=== PATIENT | female | born 1945 | race Caucasian/White ===

== ENCOUNTER → 2021-01-03 | Outpatient (CLI) | payer MEDICARE ==
[2015-03-19 14:24] VITALS: BP 116/49
[~2021-01-03] MED LIST: ALPR0.5T6 PO; BEE550CA PO; CALC-98 PO; FERR325C PO; GLUC100018 PO; HYDR-3135 PO; LISI10TA16 PO; LISI20TA18 PO; MAGN400T30 PO; PANT40TA77 PO; PARS1TAB PO; SUCR1TAB PO; SULF1TAB24 PO; WARF3TAB50 PO
--- NOTE | 2021-01-03 17:47 | CARD ---
MR#: [id number] Date of Study: 01/03/2021 Ordering Physician: NELLI RITCHIE, Referring Physician: NELLI RITCHIE Tech: Mesfin Leblanc [facility] APPROVED REPORT EXAM: Two-dimensional and M-mode echocardiogram with Doppler and color Doppler. INDICATION Hypertension/HCVD Echo Enhancing Agent Agent/Amount Used: Lumason mL RISK FACTORS Obesity 2D DIMENSIONS IVSd1.1 (0.7-1.1cm)Aortic Root(2D)2.7 (2.0-3.7cm) LVDd3.7 (3.9-5.9cm)LVOT Diameter1.8 (1.8-2.4cm) PWd1.2 (0.7-1.1cm)LVDs2.0 (2.5-4.0cm) FS (%) 47.5 %SV47.6 ml Aortic Valve AoV Peak Cain.161.3cm/sAoV VTI32.7cm AO Peak GR.10.4mmHgLVOT Peak Cain.114.2cm/s LVOT VTI 21.69cmAO Mean GR.6mmHg VANNESSA (VMAX)1.17qg8FLP (VTI)1.78cm2 Mitral Valve MV E Wzxttbaz80.4cm/sMV DECEL [id number] MV A Ocneyhds124.0cm/sMV [id number] E/A Ratio0.6MVA (PHT)1.25cm2 TDI E/Lateral E'7.3E/Medial E'6.9 Pulmonary Valve PV Peak Xhibivqg181.8cm/sPV Peak Grad.6mmHg Tricuspid Valve TR P. Jrawwnsl876kh/sTR Peak Gr.22mmHg Pulmonary Vein S1 Jhwgvwhb28.3cm/sD2 Mclcujhb95.4cm/s LEFT VENTRICLE The left ventricle is normal size. There is borderline concentric left ventricular hypertrophy. The l eft ventricular systolic function is normal and the ejection fraction is within normal range. Left ve ntricular ejection fraction of 60 to 65% There is normal LV segmental wall motion. Transmitral Dopple r flow pattern is Grade I-abnormal relaxation pattern. No left ventricle thrombus noted on this study . There is no ventricular septal defect visualized. There is no left ventricular aneurysm. There is n o mass noted in the left ventricle. RIGHT VENTRICLE The right ventricle is normal size. There is normal right ventricular wall thickness. The right ventr icular systolic function is normal. ATRIA The left atrium is mildly dilated. The right atrium size is normal. The interatrial septum is intact with no evidence for an atrial septal defect or patent foramen ovale as noted on 2-D or Doppler imagi ng. AORTIC VALVE The aortic valve is normal in structure and function. Doppler and Color Flow revealed no significant aortic regurgitation. There is no significant aortic valvular stenosis. There is no aortic valvular v egetation. MITRAL VALVE The mitral valve is normal in structure and function. There is no evidence of mitral valve prolapse. There is no mitral valve stenosis. Doppler and Color Flow revealed ntrace mitral valve regurgitation. TRICUSPID VALVE The tricuspid valve is normal in structure and function. Doppler and Color Flow revealed trace to mil d tricuspid regurgitation. There is no tricuspid valve prolapse or vegetation. There is no tricuspid valve stenosis. PULMONIC VALVE The pulmonary valve is normal in structure and function. Doppler and Color Flow revealed no pulmonic valvular regurgitation. There is no pulmonic valvular stenosis. GREAT VESSELS The aortic root is normal in size. The ascending aorta is normal in size. The pulmonary artery is nor mal. The IVC is normal in size and collapses >50% with inspiration. PERICARDIAL EFFUSION There is no pleural effusion. There is no evidence of significant pericardial effusion. Critical Notification Critical Value: No <Conclusion> The left ventricle is normal size. The left ventricular systolic function is normal and the ejection fraction is within normal range. Left ventricular ejection fraction of 60 to 65% There is borderline concentric left ventricular hypertrophy. Doppler and Color Flow revealed no significant aortic regurgitation. There is no significant aortic valvular stenosis. Doppler and Color Flow revealed ntrace mitral valve regurgitation. Doppler and Color Flow revealed trace to mild tricuspid regurgitation. Signed by : Duy Price MD Electronically Approved : 01/03/2021 17:46:33
== END ==
LOC: ECHO 10:26
PROVIDERS: ATTEND Physician Assistant Medical
DX: I36.1 Nonrheumatic tricuspid (valve) insufficiency (principal); I10 Essential (primary) hypertension; I51.7 Cardiomegaly
CPT/HCPCS: 93306